=== PATIENT | female | born 1970 | race Caucasian/White ===

== ENCOUNTER 2016-07-13 07:23 | Day surgery (SDC) | payer BC ==
[2016-07-10 12:15] LABS: BASOPHILS 0.1 %; BASOPHILS ABSOLUTE 0.01 10/3/uL (0.0-0.16); EOSINOPHILS 0.4 %; EOSINOPHILS ABSOLUTE 0.03 10/3/uL (0.0-0.53); HEMATOCRIT 41.8 % (36.0-48.0); HEMOGLOBIN 14.5 g/dL (12.0-16.0); IMMATURE GRANULOCYTES 0.1 %; IMMATURE GRANULOCYTES ABSOLUTE 0.01 10/3/uL (0.0-0.11); LYMPHOCYTES ABSOLUTE 1.32 10/3/uL (0.67-4.30); MEAN CORPUS HGB CONC 34.7 g/dL (32.0-36.0); MEAN CORPUSCULAR HEMOGLOB 31.3 pg (26.0-34.0); MEAN CORPUSCULAR VOLUME 90.3 fL (80-100); MEAN PLATELET VOLUME 11.5 fL (9.2-13.0); MONOCYTES 5.7 %; MONOCYTES ABSOLUTE 0.42 10/3/uL (0.21-1.20); NEUTROPHILS 75.7 %; NEUTROPHILS ABSOLUTE 5.55 10/3/uL (2.02-8.40); PLATELET COUNT 150 10/3/uL (150-400); RED CELL COUNT 4.63 10/6/uL (4.0-5.6); WHITE BLOOD CELLS 7.3 10/3/uL (4.5-10.5)
[2016-07-10 12:16] LABS: MANUAL DIFF NO %
[2016-07-10 12:37] LABS: A/G RATIO 1.2 (0.7-1.9); ALBUMIN 3.8 G/DL (3.5-5.0); ALKALINE PHOSPHATASE 62 U/L (45-117); BUN (BLOOD UREA NITROGEN) 9 MG/DL (6-23); CALCIUM, SERUM 8.8 MG/DL (8.5-10.4); CHLORIDE, SERUM 107 MMOL/L (96-112); CO2 (CARBON DIOXIDE) 27 MMOL/L (24-34); CREATININE 0.81 MG/DL (0.55-1.02); GFR AFRICAN AMERICAN 102 ML/MIN (>=60); GFR NON AFRICAN AMERICAN 88 ML/MIN (>=60); GLOBULIN 3.1 G/DL (2.5-4.1); GLUCOSE, SERUM 95 MG/DL (60-99); POTASSIUM, SERUM 4.2 MMOL/L (3.5-5.3); SGOT(AST) 8 U/L (5-40); SGPT(ALT) 14 U/L (5-65); SODIUM, SERUM 141 MMOL/L (135-148); TOTAL BILIRUBIN 0.6 MG/DL (0-1.2); TOTAL PROTEIN 6.9 G/DL (6.0-8.5)
--- NOTE | ~2016-07-13 | OP ---
Record Of Operation [facility] [address] [place]. [address] NAME: STEFF HENDRICKS : 72 STATUS : [facility]#: [id number] AGE: 45 ADM/REG DATE : 07/13/16 MR#: [id number] REPORT SERV DATE: 07/16/16 DICTATED BY: VILMA DODSON JR. DATE: 07/13/16 REPORT STATUS : Draft TRANSCRIBED BY: MODL DATE: 07/13/16 DATE OF PROCEDURE: REASON FOR SURGERY: This 45-year-old patient presents to the [facility] with an interesting problem involving a large bloody mass of the central right breast. Aspiration revealed old blood within a cyst, and on ultrasound had a fleshy margins throughout indicating probable papilloma versus papillary carcinoma. Indeed, the cell aspirate appears to show malignant cells. The lesion re-expanded immediately by the patient's report and I elected not to do a core biopsy of the remaining wall after a repeat aspiration, but decided to resect this formally as a breast cancer hoping this is an in situ papillary carcinoma with bleeding. Low-grade papillary cancers are commonly treated with surgery alone, but margins will certainly be an issue in her case. Additionally, she has not undergone genetic counseling as yet for insurance reasons, but this will be revisited in the [facility] when we see her again. 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 POSTOPERATIVE DIAGNOSIS: Apparent carcinoma of the right breast-papillary. SURGEON: Dr. Vilma Dodson. SURGERY PERFORMED: [place] node localization followed by right breast segmentectomy and sentinel node resection. DESCRIPTION OF PROCEDURE: The patient was initially injected in the nuclear medicine facility. She was taken to the operating room, and under general anesthesia, she was prepped and draped in the supine position in the usual sterile fashion. The primary tumor site was aspirated with a 21 needle, and 50 mL of old bloody fluid was removed with complete collapse of the mass. At this time, a curvilinear incision was made over the previous mass just below the areola on the right side. Vertical dissection was carried into the fatty tissue and then a 3- dimensional excision was performed. The wall of the cavity was noted, but as much margin was allowed to remain in this very thin breast. Under the nipple, there was plenty of tissue in each direction, and while this undermined the nipple, it was then on the deep space. The tumor itself was mainly situated on the pectoralis muscle. Dissection in the superficial plane was without problem until the inferior margin which extended down to the inframammary sulcus, where the tumor was involving the immediate subdermal tissue. Dissection from off the pectoralis fascia was performed with a small opening made at the lateral margin. The tumor was removed and oriented pathology. The resected cavity was estimated as 6 to 7 cm, and the resected tumor specimen was 8 x 5 x 4 cm. It extended from under the nipple to all the way to the inframammary sulcus. Additional margins were cleared involving a millimeter of fatty tissue and shaving of the subdermal layer at the anterior inferior margin. The lateral margin at the border of the pectoralis muscle was dissected on Record Of Operation [address] [address] NAME: STEFF HENDRICKS : 72 STATUS : [facility]#: [id number] AGE: 45 ADM/REG DATE : 07/13/16 MR#: [id number] REPORT SERV DATE: 07/16/16 DICTATED BY: VILMA DODSON JR. DATE: 07/13/16 REPORT STATUS : Draft TRANSCRIBED BY: MODMuriel DATE: 07/13/16 wrapping the lateral border of the pectoralis fascia on to the serratus for the mid posterior margin. This was oriented for pathology. The wound was irrigated and hemostasis was obtained. The wound was closed with two layers of Monocryl. Attention was then turned to the right axilla. With help with the Gamma probe, a small curvilinear incision was made and vertical dissection was carried down to a singly active hot spot. The very generous fleshy node was removed, and sent for pathology with evidence of fatty replacement. The wound was irrigated and hemostasis was obtained. Readings with the gamma probe were as recorded in the surgical log book. The wound was closed with two layers of Monocryl. The patient tolerated the procedure without complications. ESTIMATED BLOOD LOSS: Less than 15 mL. SPONGE COUNT: Correct. /TITI Vilma Dodson Jr., M.D. / [id number] CC: Alysa Mayo Jr., MD [facility]
[~2016-07-13 07:23] MED LIST: L-LYSINE500 M1 PO; PROBIOTIC PO; PROZAC PO
[2016-08-06] MEDS ORDERED: V5 PO (13:45)
[2016-08-06] MEDS ORDERED: DEX4 PO (13:46)
== END 2016-07-13 15:58 | disposition home or self-care (01) ==
LOC: SDC 07:23
PROVIDERS: Surgery Surgical Oncology
PROC: 0BBK0ZZ Excision of Right Lung, Open Approach (ICD-10-PCS; principal; 2016-07-13 10:30)
DX: C50.111 Malignant neoplasm of central portion of right female breast (principal); F41.9 Anxiety disorder, unspecified; G43.909 Migraine, unspecified, not intractable, without status migrainosus; K21.9 Gastro-esophageal reflux disease without esophagitis; F32.9 Major depressive disorder, single episode, unspecified; Z98.51 Tubal ligation status; Z87.891 Personal history of nicotine dependence; Z98.890 Other specified postprocedural states
CPT/HCPCS: 71020; 78195; 80053; 84703; 85025; 88305; 88307; 88313; 88341; 88342; 88344; 88360; 88367; 88367-59; A9270-GY; A9541; J0690; J2250; J2405; J2710; J3010